=== PATIENT | male | born 1945 | race Caucasian/White ===

== ENCOUNTER 2018-03-10 01:47 | Observation (INO) | payer OTHER ==
--- NOTE | 2018-03-10 02:05 | CPEKG ---
Heart Rate: 145 RR Interval: 414 P-R Interval: 64 QRSD Interval: 94 QT Interval: 288 QTC Interval: 448 P [place]: 0 QRS [place]: 265 T Wave [place]: 28 EKG Severity - ABNORMAL ECG - EKG Impression: SINUS TACHYCARDIA EKG Impression: LEFT ANTERIOR FASCICULAR BLOCK Electronically Signed By: Geetha Lau 11-Mar-2018 07:51:16
[2018-03-10] MEDS ORDERED: DILTIAZEM 25 MG/5 ML VIAL IVP ONE ×2 (02:11→02:54)
[2018-03-10] MEDS ORDERED: NS 1,000 ML IV ONE (02:12)
--- NOTE | 2018-03-10 02:23 | EDPHY ---
H & P Stated Complaint: fast/irregular HR Time Seen by Provider: 03/10/18 01:56 HPI/ROS: HPI The patient presents with palpitations which have been present for the last 1.5 hr. He was lying in bed tonight and noticed that his heart rate felt irregular , often times skipping beats. He has a heart rate monitor at home and his heart rate was initially in the 70s and then increased to the 140s. He denies any chest pain, shortness of breath, dizziness, diaphoresis. He was out had several events tonight and had 5-6 alcoholic drinks which is quite unusual for him. He several months ago had similar palpitations and bought a heart monitor which did show a run of atrial fibrillation. However this is not been confirmed by a doctor. He is taking aspirin daily and does not have any changes in his medication. REVIEW OF SYSTEMS Constitutional: No fever, no chills. Eyes: No discharge. ENT: No sore throat. Cardiovascular: No chest pain, no palpitations. Respiratory: No cough, no shortness of breath. Gastrointestinal: No abdominal pain, no vomiting. Genitourinary: No hematuria. Musculoskeletal: No back pain. Skin: No rashes. Neurological: No headache. PMHx: History of BPH status post TURP, history of osteoarthritis Soc Hx: Lives at home with his , drinks alcohol PHYSICAL General Appearance: Alert, no distress Eyes: Pupils equal and round no pallor or injection ENT, Mouth: Mucous membranes moist Respiratory: There are no retractions, lungs are clear to auscultation Cardiovascular: Tachycardic regular rhythm Gastrointestinal: Abdomen is soft and non-tender, no masses, bowel sounds normal Neurological: A&O, moves all extremities Skin: Warm and dry, no rashes Musculoskeletal: Neck is supple non tender Extremities: symmetrical, full range of motion Psychiatric: Patient is oriented X 3, there is no agitation Source: Patient Exam Limitations: No limitations - Personal History Tetanus Vaccine Date: 2009 - Medical/Surgical History Hx Asthma: No Hx Chronic Respiratory Disease: No Hx Diabetes: No Hx Cardiac Disease: No Hx Renal Disease: No Hx Cirrhosis: No Hx Alcoholism: No Hx HIV/AIDS: No Hx Splenectomy or Spleen Trauma: No - Social History Smoking Status: Never smoked Constitutional: Initial Vital Signs Temperature (C) 37.2 C 03/10/18 01:50 Heart Rate 148 H 03/10/18 01:50 Respiratory Rate 20 03/10/18 01:50 Blood Pressure 139/106 H 03/10/18 01:50 O2 Sat (%) 92 03/10/18 01:50 O2 Delivery Mode Room Air Allergies/Adverse Reactions: erythromycin lactobionate [From Erythrocin] Allergy (Verified 03/10/18 01:50) Hives Home Medications: Medication Instructions Recorded Simvastatin [Zocor] 40 mg PO DAILY 12/09/15 Ciprofloxacin [Cipro] 500 mg PO BID #12 tab 01/15/16 Hydrocodone/Acetaminophen [[place] 1 - 2 each PO Q6 #20 tablet 01/15/16 7.5-325 Tablet] Aspirin [Aspirin 81mg (*)] 81 mg PO DAILY #30 tab 03/10/18 Metoprolol Tartrate 12.5 mg PO BID #30 tablet 03/10/18 Medical Decision Making - Diagnostics EKG Interpretation: EKG: Complete interpretation has been separately recorded in the [facility] archive. Summary impression: SVT which appears regular at a rate of 145 Imaging Results: Chest x-ray two view shows no cardiomegaly, no effusion, no infiltrate, interpreted by me, radiology interpretation is pending. Differential Diagnosis: This is a 72-year-old male with history of BPH who presents with several hours of palpitations, initially irregular and with rate in the 70s now with rate in the 140s. Not associated with hypotension. He has no other symptoms. On exam , he is generally well-appearing. Heart rate remains at 1:45 a.m. Fairly consistent sleep. EKG demonstrates what appears to be a regular SVT. I am concerned he may be in atrial flutter. This would fit with his history of intermittent episodes of palpitations as well as drinking alcohol tonight. In the emergency department, basic labs were checked and were all unremarkable. He received 2 doses of diltiazem with some slowing of his rate though no heart rates less than 100. He was started on a diltiazem drip. He complained of palpitations but otherwise feels okay. I plan to admit him to the hospital have discussed the case with Dr. Swain who will admit him. We have ordered him a bed in the PCU. - Data Points Laboratory Results: Laboratory Results 03/10/18 02:10 03/10/18 02:10 Medications Given: Discontinued Medications Diltiazem HCl (Cardizem 25 Mg/5 Ml Vial) 20 mg IVP EDNOW ONE Stop: 03/10/18 02:12 Last Admin: 03/10/18 02:28 Dose: 20 mg Diltiazem HCl (Cardizem 25 Mg/5 Ml Vial) 20 mg IVP EDNOW ONE Stop: 03/10/18 02:55 Last Admin: 03/10/18 03:04 Dose: 20 mg Enoxaparin Sodium (Lovenox) 40 mg SC DAILY [facility] Stop: 09/06/18 08:59 Last Admin: 03/10/18 09:46 Dose: Not Given Sodium Chloride (Ns) 1,000 mls @ 0 mls/hr IV EDNOW ONE; Wide Open PRN Reason: Protocol Stop: 03/10/18 02:13 Last Admin: 03/10/18 02:27 Dose: 1,000 mls Diltiazem HCl 125 mg/ Dextrose 125 mls @ 0 mls/hr IV EDNOW ONE; As Directed PRN Reason: Protocol Stop: 03/10/18 03:33 Last Admin: 03/10/18 03:48 Dose: 125 mls Departure - Departure Disposition: [facility] Clinical Impression: Atrial fibrillation with RVR, Palpitations Condition: Fair
[2018-03-10 02:24] LABS: PLATELET COUNT 195 10^3/uL (150-400)
[2018-03-10] MEDS ORDERED: DILTIAZEM 125 MG in D5W 125 ML IV ONE (03:32)
[2018-03-10] MEDS ORDERED: ACETAMINOPHEN 325 MG TAB PO PRN (03:50)
[2018-03-10] MEDS ORDERED: ONDANSETRON DISINTEGRATING 4 MG TAB PO PRN (03:50)
[2018-03-10] MEDS ORDERED: ONDANSETRON 4 MG/2 ML VIAL IVP PRN (03:50)
[2018-03-10] MEDS ORDERED: DILTIAZEM 125 MG in D5W 125 ML IV SCH (04:00)
--- NOTE | 2018-03-10 04:12 | PDGENHP ---
History and Physical - Chief Complaint Palpitations - History of Present Illness 72 yo M w/ OA presents w/ palpitations. He had 5-6 drinks this evening and afterwards noted palpitations starting around 1 AM. His home monitor showed HR' s in the 140's so he came in to the ED. He had noticed palpitations in the past about 1 year ago but none since. He denies recent illness or sick contacts. Upon arrival in the ED he was noted to be in SVT with HR in the 140's. Subsequent ECG c/w Afib w/ RVR, now on diltiazem gtt. He denies SOB, CP. History Information - Allergies/Home Medication List Allergies/Adverse Reactions: erythromycin lactobionate [From Erythrocin] Allergy (Verified 03/10/18 01:50) Hives Home Medications: Simvastatin [Zocor] 40 mg PO DAILY 12/09/15 [Last Taken 01/13/16] I have personally reviewed and updated: family history, medical history - Past Medical History arthritis - Surgical History Additional surgical history: Prostatectomy - Family History Additional family history: Denies family hx of cardiac disease - Social History Smoking Status: Never smoked Review of Systems Review of Systems: ROS: 10pt was reviewed & negative except for what was stated in HPI & below Physical Exam Physical Exam: Temp Pulse Resp BP Pulse Ox 36.6 C 132 H 18 99/79 L 91 L 03/10/18 03:31 03/10/18 03:50 03/10/18 03:50 03/10/18 03:50 03/10/18 03:50 Constitutional: no apparent distress, obese Eyes: PERRL, EOMI Ears, Nose, Mouth, Throat: moist mucous membranes, no oral mucosal ulcers Cardiovascular: no murmur, rub, or gallop, irregularly irregular, tachycardia Respiratory: no respiratory distress, clear to auscultation Gastrointestinal: normoactive bowel sounds, soft, non-tender abdomen Skin: warm, normal color Musculoskeletal: full muscle strength, no muscle tenderness Neurologic: AAOx3, CN II-XII Intact Psychiatric: interacting appropriately, not anxious Lab Data & Imaging Review 03/10/18 02:10 03/10/18 02:10 WBC 8.26 10^3/uL (3.80-9.50) 03/10/18 02:10 RBC 5.45 10^6/uL (4.40-6.38) 03/10/18 02:10 Hgb 17.1 g/dL (13.7-17.5) 03/10/18 02:10 Hct 50.8 % (40.0-51.0) 03/10/18 02:10 MCV 93.2 fL (81.5-99.8) 03/10/18 02:10 MCH 31.4 pg (27.9-34.1) 03/10/18 02:10 MCHC 33.7 g/dL (32.4-36.7) 03/10/18 02:10 RDW 12.2 % (11.5-15.2) 03/10/18 02:10 Plt Count 195 10^3/uL (150-400) 03/10/18 02:10 MPV 9.8 fL (8.7-11.7) 03/10/18 02:10 Neut % (Auto) 51.9 % (39.3-74.2) 03/10/18 02:10 Lymph % (Auto) 36.1 % (15.0-45.0) 03/10/18 02:10 [place] % (Auto) 8.6 % (4.5-13.0) 03/10/18 02:10 Eos % (Auto) 2.8 % (0.6-7.6) 03/10/18 02:10 Baso % (Auto) 0.5 % (0.3-1.7) 03/10/18 02:10 Nucleat RBC Rel Count 0.0 % (0.0-0.2) 03/10/18 02:10 Absolute Neuts (auto) 4.29 10^3/uL (1.70-6.50) 03/10/18 02:10 Absolute Lymphs (auto) 2.98 10^3/uL (1.00-3.00) 03/10/18 02:10 Absolute Monos (auto) 0.71 10^3/uL (0.30-0.80) 03/10/18 02:10 Absolute Eos (auto) 0.23 10^3/uL (0.03-0.40) 03/10/18 02:10 Absolute Basos (auto) 0.04 10^3/uL (0.02-0.10) 03/10/18 02:10 Absolute Nucleated RBC 0.00 10^3/uL (0-0.01) 03/10/18 02:10 Immature Gran % 0.1 % (0.0-1.1) 03/10/18 02:10 Immature Gran # 0.01 10^3/uL (0.00-0.10) 03/10/18 02:10 D-Dimer < 0.27 ug/mLFEU (0.00-0.50) 03/10/18 02:10 Sodium 149 mEq/L (135-145) H 03/10/18 02:10 Potassium 4.1 mEq/L (3.5-5.2) 03/10/18 02:10 Chloride 113 mEq/L (97-110) H 03/10/18 02:10 Carbon Dioxide 22 mEq/l (22-31) 03/10/18 02:10 Anion Gap 14 mEq/L (8-16) 03/10/18 02:10 BUN 21 mg/dL (7-23) 03/10/18 02:10 Creatinine 0.7 mg/dL (0.7-1.3) 03/10/18 02:10 Estimated GFR > 60 03/10/18 02:10 Glucose 116 mg/dL (70-100) H 03/10/18 02:10 Calcium 9.5 mg/dL (8.5-10.4) 03/10/18 02:10 Total Bilirubin 0.5 mg/dL (0.1-1.4) 03/10/18 02:10 AST 33 IU/L (17-59) 03/10/18 02:10 ALT 51 IU/L (21-72) 03/10/18 02:10 Alkaline Phosphatase 126 IU/L (38-126) 03/10/18 02:10 Troponin I 0.014 ng/mL (0.000-0.034) 03/10/18 02:10 NT-Pro-B Natriuret Pep 82 pg/mL (0-125) 03/10/18 02:10 Total Protein 7.5 g/dL (6.3-8.2) 03/10/18 02:10 Albumin 4.5 g/dL (3.5-5.0) 03/10/18 02:10 Visualized and Interpreted Chest x-ray results: Yes Chest X-Ray results: no infiltrate Visualized and Interpreted EKG results: Yes EKG Interpretation: Positive for: other (Afib w/ RVR) Assessment & Plan Assessment: 72 yo M w/ OA p/w Afib w/ RVR. Plan: 1. Afib w/ RVR - New problem for this patient. Likely triggered by 5-6 ETOH drinks this evening. No CP or SOB to suggest ACS; also denies recent illness. His CHADSVASC is only 1 for age and he is already on an aspirin. - Admit to PCU for observation - Monitor on telemetry - Diltiazem gtt for rate control - Will maintain NPO for now in case he needs cardioversion - Continue ASA, statin Diet - NPO Code - Full Ppx - LMWH Dispo - Admit under observation status
--- NOTE | 2018-03-10 04:46 | CPEKG ---
Heart Rate: 127 RR Interval: 472 QRSD Interval: 86 QT Interval: 328 QTC Interval: 477 QRS [place]: -76 T Wave [place]: 56 EKG Severity - ABNORMAL ECG - EKG Impression: ATRIAL FIBRILLATION EKG Impression: LEFT ANTERIOR FASCICULAR BLOCK EKG Impression: BORDERLINE PROLONGED QT INTERVAL Electronically Signed By: Geetha Lau 11-Mar-2018 07:51:06
[2018-03-10 08:26] VITALS: BP 118/64
[2018-03-10] MEDS ORDERED: ENOXAPARIN 40 MG/0.4 ML SYR SC SCH (09:00)
--- NOTE | 2018-03-10 09:12 | GDS ---
[f rep st] DISCHARGE SUMMARY FINAL DIAGNOSES: 1. Atrial fibrillation and atrial flutter with rapid ventricular response. 2. Obesity with body mass index of 35. 3. Sleep apnea, on continuous positive airway pressure. 4. Palpitations. 5. Mild hypernatremia. 6. Hypercholesterolemia. HOSPITAL COURSE: This 72-year-old man was admitted with palpitations and found to be in A-flutter an d atrial fibrillation. He was started on a diltiazem drip. He spontaneously converted to normal sin us rhythm. His [id number] score is 1, only scoring a point for his age. I have recommended a baby aspirin (he was previously taking 2 full-dose aspirin). Started him on metoprolol 12.5 b.i.d., give n him warnings for side effects of this. I recommend that he follow up with his primary care physici an as well as Dr. Sharif for ongoing management. I have discussed all this with him and his , and they are comfortable with this plan. He is discharged in stable condition. /[id number]/MODL
--- NOTE | 2018-03-10 12:04 | ASMTCMCOM ---
CM Note CM Note Notes: Pt admitted last evening through the Emergency Department for a new onset of palpitations following 5-6 drinks. History includes a prostatectomy, obesity with a BMI >35, hypercholesterolemia, sleep apnea. Pt diagnosed with new onset of afib with RVR and mild hypernatremia. Pt is and lives with his . Spoke with MARIE Miller - pt to discharge home independently with family support and no identified needs. Attempted to have pt sign VERGARA and IM, pt left prior to signing. Pt hospitalization < 24 hrs. Pt to follow up as directed. CM available for any further issues or concerns. Disposition: Home independently with family support Date Signed: 03/10/2018 12:03 PM Electronically Signed By:Dayna Narayan RN
--- NOTE | 2018-03-10 12:08 | ASDISCHSUM ---
Discharge Information Plan Status:Home with No Needs Medically Cleared to Leave:03/10/2018 Discharge Date:03/10/2018 11:45 AM CM D/C Disposition:Home, Routine, Self-Care ADT D/C Disposition:Home, Routine, Self-Care Projected Discharge Date:03/10/2018 11:45 AM Transportation at D/C:Family Discharge Delay Reason: Follow-Up Date:03/10/2018 11:45 AM Discharge Slot:1 - 8:01 am - 12:00 noon Final Diagnosis:Afib w/ RVR, palpitations, prostatectomy, obesity, sleep apnea, mild hypernatremia, hypercholesterolemia Placement Information Patient Contact Information Contact Name:ARIADNE Relationship: Address:[address] City:[place] Alternate Phone: [facility]/Zip Code:[place] [address] Email: Financial Information Financial Class:Medicare Primary Plan Desc:MEDICARE OUTPATIENT Primary Plan Number:[id number] Secondary Plan Desc:KEE PPO Secondary Plan Number:[id number] Assessment Information [facility] CM Progress Note CM Note CM Note Notes: Pt admitted last evening through the Emergency Department for a new onset of palpitations following 5-6 drinks. History includes a prostatectomy, obesity with a BMI >35, hypercholesterolemia, sleep apnea. Pt diagnosed with new onset of afib with RVR and mild hypernatremia. Pt is and lives with his . Spoke with MARIE Miller - pt to discharge home independently with family support and no identified needs. Attempted to have pt sign VERGARA and IM, pt left prior to signing. Pt hospitalization < 24 hrs. Pt to follow up as directed. CM available for any further issues or concerns. Disposition: Home independently with family support Date Signed: 03/10/2018 12:03 PM Electronically Signed By:Dayna Narayan RN LACE LACE Length of stay for Answers: Less than 1 day current admission Acuity / Level of Answers: No Care: Did the patient have an inpatient admission? Comorbidities - select Answers: Other Notes: afib all that apply w/ RVR, obesity. sleep apnea, hypercholesterol dorian a # of Emergency department Answers: 1-2 visits in the last 6 months Score: 2 Date Signed: 03/10/2018 12:06 PM Electronically Signed By:Dayna Narayan RN Intervention Information Intervention Type:IM-Pt. Not Available Date of Service:03/10/2018 11:54 AM Patient Type:Observation Staff Member:MARIE Narayan Taylor Hours: Discipline: Severity: Comment:Attempted to have pt sign IM, pt had a lready left the unit. Hospitalization <24 hrs. Intervention Type:VERGARA-Not Delivered Date of Service:03/10/2018 12:06 PM Patient Type:Observation Staff Member:MARIE Narayan Taylor Hours: Discipline: Severity: Comment:Attempted to have pt sign VERGARA, pt had already left the unit. Hospitalization <24 hrs .
== END 2018-03-10 11:45 | disposition home or self-care (01) ==
LOC: F2W 05:02
PROVIDERS: ADMIT Student in an Organized Health Care Education/Training Program; ATTEND Student in an Organized Health Care Education/Training Program
DX: I48.91 Unspecified atrial fibrillation (principal); E66.9 Obesity, unspecified; G47.30 Sleep apnea, unspecified; R00.2 Palpitations; E87.0 Hyperosmolality and hypernatremia; E78.00 Pure hypercholesterolemia, unspecified; E86.9 Volume depletion, unspecified; Z68.35 Body mass index [BMI] 35.0-35.9, adult; Z87.438 Personal history of other diseases of male genital organs
CPT/HCPCS: 71046; 93005; 96361; 96374; 96375; 96376; 99285; G0378

== ENCOUNTER → 2018-03-26 | Outpatient (CLI) | payer OTHER | LOC: BHFA 11:30 | PROVIDERS: ATTEND Internal Medicine Cardiovascular Disease | DX: I48.92 Unspecified atrial flutter (principal) ==

== ENCOUNTER → 2018-04-06 | Outpatient (CLI) | payer OTHER | LOC: BHFA 13:30 | PROVIDERS: ATTEND Internal Medicine Cardiovascular Disease | DX: I48.91 Unspecified atrial fibrillation (principal) ==